=== PATIENT | female | born 1955 | race Caucasian/White ===

== ENCOUNTER 2017-10-08 12:45 | Emergency (ER) | payer OTHER ==
[~2017-10-08] VITALS: Ht 160 cm; Wt 53.5 kg
[2017-10-08] MEDS ORDERED: DUAVEE 0.45-201 EACH PO (13:12)
== END 2017-10-08 13:51 | disposition home or self-care (01) ==
LOC: ER 12:45
DX: S92.355A Nondisplaced fracture of fifth metatarsal bone, left foot, initial encounter for closed fracture (principal); W10.9XXA Fall (on) (from) unspecified stairs and steps, initial encounter; Z79.899 Other long term (current) drug therapy
CPT/HCPCS: 29515; 73630; 99283

== ENCOUNTER 2017-10-12 11:10 | Day surgery (SDC) | payer OTHER ==
[~2017-10-12] VITALS: Ht 160 cm; Wt 54.1 kg
[~2017-10-12 11:10] MED LIST: DUAVEE 0.45-201 EACH PO
== END 2017-10-12 15:35 | disposition home or self-care (01) ==
LOC: ORSCSDS 11:10
PROVIDERS: Podiatrist Foot & Ankle Surgery
PROC: 0QSP04Z Reposition Left Metatarsal with Internal Fixation Device, Open Approach (ICD-10-PCS; principal; 2017-10-12 12:30)
DX: S92.352A Displaced fracture of fifth metatarsal bone, left foot, initial encounter for closed fracture (principal)
CPT/HCPCS: C1713; J0690; J1100; J1885; J2250; J2405; J2765; J3010; J7040; J7120

== ENCOUNTER → 2018-10-23 | Outpatient (CLI) | payer OTHER ==
[2018-10-25 15:06] LABS: HPV 16 Negative (Negative); HPV 18 Negative (Negative); HPV OTHER HR TYPES Negative (Negative)
== END | disposition home or self-care (01) ==
LOC: LAB 18:52 → LAB SHORT 18:52
PROVIDERS: Nurse Practitioner Women's Health
DX: Z12.4 Encounter for screening for malignant neoplasm of cervix (principal)
CPT/HCPCS: 87624; G0123

== ENCOUNTER 2019-11-03 10:52 | Day surgery (SDC) | payer OTHER ==
[~2019-11-03 10:52] MED LIST changes: +CALCIUM + VITA1 EAC1 PO; +Estrace Vagin42.5 GM VAG
== END 2019-11-03 13:21 | disposition home or self-care (01) ==
PROVIDERS: Internal Medicine Gastroenterology
PROC: 0DJD8ZZ Inspection of Lower Intestinal Tract, Via Natural or Artificial Opening Endoscopic (ICD-10-PCS; principal; 2019-11-03 12:00)
DX: Z12.11 Encounter for screening for malignant neoplasm of colon (principal); K57.30 Diverticulosis of large intestine without perforation or abscess without bleeding; K64.8 Other hemorrhoids

== ENCOUNTER → 2023-06-20 | Outpatient (CLI) | payer OTHER | LOC: LAB 08:41 → LAB SHORT 08:41 | DX: L82.1 Other seborrheic keratosis (principal); L81.9 Disorder of pigmentation, unspecified | CPT/HCPCS: 88305 ==

== ENCOUNTER 2025-05-22 06:46 | Day surgery (SDC) | payer MEDICARE, OTHER ==
[2025-05-22] VITALS (12 sets, daily range): BP systolic 94–122; BP diastolic 45–80
[~2025-05-22] VITALS: Ht 160 cm; Wt 52.7 kg
--- NOTE | 2025-05-22 07:31 | NUR ---
History, Chart, Medications and Allergies reviewed before start of procedure. Pre-Op teaching done. Pt verbalizes understanding. Patient confirms NPO status and agrees with scheduled surgery. SPOUSE AT BS.
[2025-05-22] MEDS ORDERED: Midazolam HCl 1MG / ML 2ML Vial ONE (07:41)
[2025-05-22] MEDS ORDERED: CeFAZolin Sodium 2,000 MG VIAL ONE (08:03)
--- NOTE | 2025-05-22 08:38 | NUR ---
05/22/25 0838 Janel Miguel RIGHT AXILLARY BLOCK COMPLETED BY IN THE PREOPERATIVE SETTING.
[2025-05-22] MEDS ORDERED: Ondansetron HCl 2 MG / ML 2ML Vial IV PRN (08:45)
[2025-05-22] MEDS ORDERED: HYDROcodone 5-APAP 325 TAB PO PRN ×2 (08:50→10:10)
[2025-05-22] MEDS ORDERED: Ketorolac Tromethamine 30mg Vial IV PRN (08:55)
[2025-05-22] MEDS ORDERED: Phenylephrine HCl 100 MCG/ML-NS 10MLSYR (1MG/10ML) ONE (09:11)
[2025-05-22] MEDS ORDERED: Dexamethasone Sod Phos 10 MG/ML 1ML VIAL ONE (09:11)
[2025-05-22] MEDS ORDERED: Bupivacaine HCl 0.25% 30 ML Injection ONE (09:11)
[2025-05-22] MEDS ORDERED: Ondansetron HCl 2 MG / ML 2ML Vial ONE (09:11)
[2025-05-22] MEDS ORDERED: EpiNEPhrine 1 MG/1 ML 1ML Vial ONE (09:12)
[2025-05-22] MEDS ORDERED: OxyCODONE 5 mg/Acetamin 325 mg TABLET PO PRN (10:05)
--- NOTE | 2025-05-22 11:15 | NUR ---
TO STEP POST RIGHT ORIF. GRACE WRAP CDI. BLOCK IN PLACE, FINGERS WARM. STRONG CAP REFILL. DENIES PAIN, NAUSEA, SOB. LEXX PO WELL. VERBALIZED UNDERSTANDING OF DC INSTRUCTIONS. DC'D IV INTACT. UP TO BR WITH ASSIST. DRESSED AT BEDSIDE. SLING IN PLACE, ICE THERAPY PROVIDED. DC'D VIA WC TO PRIVATE CAR WITH SUPPLY CONTROLLER.
== END 2025-05-22 11:00 | disposition home or self-care (01) ==
LOC: ORSCMMR 06:46 → ORD 07:30 → ORSCMMR 08:00 → ORD 08:00 → ORSCMMR 11:00
PROVIDERS: Orthopaedic Surgery
PROC: 0PSH04Z Reposition Right Radius with Internal Fixation Device, Open Approach (ICD-10-PCS; principal; 2025-05-22 08:00)
DX: S52.551A Other extraarticular fracture of lower end of right radius, initial encounter for closed fracture (principal); E04.9 Nontoxic goiter, unspecified; Z79.899 Other long term (current) drug therapy
CPT/HCPCS: A9270; C1713; J0169; J0690; J1100; J2250; J2371; J2405; J2704; J7120